=== PATIENT | female | born 1960 | race Caucasian/White ===

== ENCOUNTER 2023-06-15 20:58 | Observation (INO) | payer SELFPAY ==
[2023-06-15] VITALS (8 sets, daily range): BP systolic 111–147; BP diastolic 65–100
[2023-06-15 15:38] LABS: % Basophils 0.3 % (0-2); % Eosinophils 0.1 % (0-6); % Immature Granulocytes 0.3 % (0-0.5); % Lymphocytes 10.4 % (20.5-51.1); % Monocytes 2.8 % (1.7-9.3); % Neutrophils 86.1 % (42.2-75.2); Absolute Monocytes 0.3 10^3/uL (0.1-0.6); Absolute Neutrophils 8.2 10^3/uL (1.4-6.5); Hematocrit 41.8 % (37.0-47.0); Hemoglobin 14.6 g/dL (12.0-16.0); Mean Corp Hgb Conc. 34.9 g/dL (33.0-37.0); Mean Corpuscular Hgb 30.4 pg (27.0-31.0); Mean Corpuscular Volume 87.1 fL (81.0-99.0); Mean Platelet Volume 9.5 fL (7.4-10.4); Nucleated Red Blood Cells % 0 %; Platelet Count 261 10^3/uL (130-400); Red Cell Dist. Width 11.8 % (11.5-14.5); White Blood Cell Count 9.5 10^3/uL (4.8-10.8)
--- NOTE | 2023-06-15 15:45 | ED.GENMED ---
History of Present Illness
<Ning Campo PA-C - Last Filed: 06/15/23 21:51>
General
Chief Complaint: Abdominal Symptoms
Source: patient
Exam Limitations: none
Time Seen by Provider: 06/15/23 15:18
Nursing documentation reviewed up to this point in time: agreed with
Travel History
Have you had any contact with someone who has COVID-19?: No
Do you have any symptoms of coronavirus? Fever > 100 degrees, chills, cough, shortness of breath, sore throat, loss of taste or smell, muscle aches, or headache?: No
History of Present Illness
History of Present Illness:
Patient is a 62-year-old female presenting for evaluation of acute onset lower abdominal pain and vomiting. 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
vomiting. She proceeded to vomit multiple times. She was then seen in urgent care they referred her to the emergency department for further evaluation. She was brought in by EMS and given 50 mcg fentanyl en route.
Patient believes that the symptoms are similar to prior diverticulitis flare in the past. She denies any fever, chills, diarrhea, urinary symptoms. She denies any back pain, chest pain, shortness of breath. Patient denies any hematemesis.
Patient does have a history of a known ascending thoracic aortic aneurysm which has been monitored. No history of abdominal surgeries
Past History
<Ning Campo PA-C - Last Filed: 06/15/23 21:51>
Past History
ED Past Medical History: HTN, Psychiatric (Bipolar disorder) and Other (Cervical and thoracic disc disease, chronic chest pain, T3 herniation/narcotic dependent, Gastroenteritis, Intractable Nausea/vomiting, ascending aortic aneurysm (3.4cm))
ED Past Surgical History: Gynecological (Ectopic , D&C) and Orthopedic (Epidural injection, Left hip fracture)
Social History
Tobacco: Former smoker
Alcohol: Occasional
Personal: (Divorce, and remarried. Intermittent custody siu and stress from her ex-. )
Living: with family
Employment: Not employed
Family History
Family History: Other (Noncontributory)
Phy Exam
<Ning Campo PA-C - Last Filed: 06/15/23 21:51>
Physical Exam
Physical Exam:
General: In moderate distress, nontoxic appearing, vomiting on initial assessment
Vitals: Bradycardic, otherwise vital signs stable, afebrile
HEENT: Atraumatic, normocephalic; pupils equal round react light bilaterally, protecting airway
Neck: appears supple, no meningeal signs
CV: Bradycardic, heart sounds normal, no evidence of cyanosis
Resp: No evidence of respiratory stress, lungs clear bilaterally
Abd: Soft, moderate tenderness in lower abdomen most significant in right lower quadrant, no rebound tenderness or guarding, non-distended; no CVA tenderness
Extremities: No deformities, no evidence of cyanosis or edema
Neuro: alert and oriented x3; grossly intact
Psych: Normal affect
Skin: Intact, no rashes or jaundice
Course
<Nnig Campo PA-C - Last Filed: 06/15/23 21:51>
Orders/Labs/Results
Orders:
Orders
06/15/23 15:34
Complete Blood Count/With Diff Urgent
Comprehensive Metabolic Panel Urgent
Lipase Urgent
TSH Reflex To Free T4 Urgent
Comment: ADD ON
06/15/23 15:45
0.9% Sodium Chloride 1000 ml [Nss] 1,000 ml IV BOLUS
HYDROmorphone [Dilaudid] 0.5 mg IV NOW STA
Ondansetron Injectable [Zofran] 4 mg IV NOW STA
06/15/23 15:58
CT Chest/abd/pelvis Angio W/wo Urgent
Comment:
Reason For Exam: Abdominal pain. History of thoracic aneurysm
06/15/23 17:58
HYDROmorphone [Dilaudid] 0.5 mg IV NOW STA
Ondansetron Injectable [Zofran] 4 mg IV NOW STA
06/15/23 19:53
Electrocardiogram (*1) Stat
Reason for Study: Other
Other Reason for Exam: chest pain
EKG- Treatment ONCE
06/15/23 20:15
Troponin I Urgent
06/15/23 20:32
Mag Hydrox/Al Hydrox/Simeth [Maalox] 30 ml Phenobarb/Hyoscy/Atropine/Scop [] 10 ml Viscous Lidocaine 2% [Xylocaine Viscous Cup] 10 ml PO NOW
Pantoprazole [Protonix IV] 40 mg IV NOW STA
06/15/23 20:35
0.9% Sodium Chloride [Nss (Preservative Free)] 10 ml IV NOW STA
06/15/23 20:39
Admit/Transfer Patient As Directed
Co-Sign Provider:
Level of Care: Observation services
Assign to:: Telemetry
Physician / Group: hector montes de oca
Diagnosis: abd pain 2/2 stress induced gastritis
Reason for Telemetry: Arrhythmia
Date to Stop Telemetry: 06/18/23
Time to Stop Telemetry: 11:00
Reason for Hospitalization: abd pain 2/2 stress induced gastritis
Code Status As Directed
Resuscitation Status: Full Code
06/15/23 20:42
Clonazepam [Klonopin] 1 mg PO NOW STA
06/15/23 20:48
Add On- LAB Urgent
Tests Added?: tsh with free t4 reflex
06/15/23 22:00
Trazodone [Desyrel] 100 mg PO HS
06/16/23 08:00
Pantoprazole [Protonix IV] 40 mg IV DAILY
06/18/23 11:00
DC Protocol for Telemetry ONCE
Abnormal Lab Results
06/15/23
15:34
Absolute Neuts (auto) 8.2 H 10^3/uL
(1.4-6.5)
Absolute Lymphs (auto) 1.0 L 10^3/uL
(1.2-3.4)
Neutrophils % 86.1 H %
(42.2-75.2)
Lymphocytes % 10.4 L %
(20.5-51.1)
Glucose 111 H mg/dl
(70-99)
06/15/23 15:34
06/15/23 15:34
Vital Signs
Initial and Last Documented VS:
Initial Vital Signs
Temp Pulse Resp Pulse Ox
98.9 F 47 20 100
06/15/23 15:04 06/15/23 15:04 06/15/23 15:04 06/15/23 15:04
Last Documented Vital Signs
Temp Pulse Resp BP Pulse Ox
98.9 F 44 18 134/79 100
06/15/23 15:04 06/15/23 19:11 06/15/23 19:11 06/15/23 19:11 06/15/23 19:11
<Frederic Dorado MD - Last Filed: 06/15/23 20:13>
Orders/Labs/Results
Orders:
Orders
06/15/23 15:34
Complete Blood Count/With Diff Urgent
Comprehensive Metabolic Panel Urgent
Lipase Urgent
TSH Reflex To Free T4 Urgent
Comment: ADD ON
06/15/23 15:45
0.9% Sodium Chloride 1000 ml [Nss] 1,000 ml IV BOLUS
HYDROmorphone [Dilaudid] 0.5 mg IV NOW STA
Ondansetron Injectable [Zofran] 4 mg IV NOW STA
06/15/23 15:58
CT Chest/abd/pelvis Angio W/wo Urgent
Comment:
Reason For Exam: Abdominal pain. History of thoracic aneurysm
06/15/23 17:58
HYDROmorphone [Dilaudid] 0.5 mg IV NOW STA
Ondansetron Injectable [Zofran] 4 mg IV NOW STA
06/15/23 19:53
Electrocardiogram (*1) Stat
Reason for Study: Other
Other Reason for Exam: chest pain
EKG- Treatment ONCE
06/15/23 20:15
Troponin I Urgent
06/15/23 20:32
Mag Hydrox/Al Hydrox/Simeth [Maalox] 30 ml Phenobarb/Hyoscy/Atropine/Scop [] 10 ml Viscous Lidocaine 2% [Xylocaine Viscous Cup] 10 ml PO NOW
Pantoprazole [Protonix IV] 40 mg IV NOW STA
06/15/23 20:35
0.9% Sodium Chloride [Nss (Preservative Free)] 10 ml IV NOW STA
06/15/23 20:39
Admit/Transfer Patient As Directed
Co-Sign Provider:
Level of Care: Observation services
Assign to:: Telemetry
Physician / Group: hector montes de oca
Diagnosis: abd pain 2/2 stress induced gastritis
Reason for Telemetry: Arrhythmia
Date to Stop Telemetry: 06/18/23
Time to Stop Telemetry: 11:00
Reason for Hospitalization: abd pain 2/2 stress induced gastritis
Code Status As Directed
Resuscitation Status: Full Code
06/15/23 20:42
Clonazepam [Klonopin] 1 mg PO NOW STA
06/15/23 20:48
Add On- LAB Urgent
Tests Added?: tsh with free t4 reflex
06/15/23 22:00
Trazodone [Desyrel] 100 mg PO HS
06/16/23 08:00
Pantoprazole [Protonix IV] 40 mg IV DAILY
06/18/23 11:00
DC Protocol for Telemetry ONCE
Abnormal Lab Results
06/15/23
15:34
Absolute Neuts (auto) 8.2 H 10^3/uL
(1.4-6.5)
Absolute Lymphs (auto) 1.0 L 10^3/uL
(1.2-3.4)
Neutrophils % 86.1 H %
(42.2-75.2)
Lymphocytes % 10.4 L %
(20.5-51.1)
Glucose 111 H mg/dl
(70-99)
06/15/23 15:34
06/15/23 15:34
Vital Signs
Initial and Last Documented VS:
Initial Vital Signs
Temp Pulse Resp Pulse Ox
98.9 F 47 20 100
06/15/23 15:04 06/15/23 15:04 06/15/23 15:04 06/15/23 15:04
Last Documented Vital Signs
Temp Pulse Resp BP Pulse Ox
98.9 F 44 18 134/79 100
06/15/23 15:04 06/15/23 19:11 06/15/23 19:11 06/15/23 19:11 06/15/23 19:11
<Ning Campo PA-C - Last Filed: 06/15/23 21:51>
MDM/Problems Addressed
Differential Diagnosis Includes:
Appendicitis, diverticulitis, kidney stone, pancreatitis, close colitis, constipation, AAA
MDM/Problems Addressed:
Patient is a 8-year-old female history as documented presenting for evaluation of acute onset lower abdominal pain associated vomiting earlier today. Seen in urgent care and sent via EMS for further evaluation. No fever, chills, urinary symptoms,
back pain, chest pain, shortness of breath. Patient is somewhat bradycardic on arrival, otherwise vital signs stable. Physical exam as documented above. She is actively vomiting, does appear uncomfortable. She is moderate tenderness in lower
abdomen worse in right lower quadrant. Will give Zofran, Dilaudid, fluids. Basic labs obtained in triage unremarkable. Given known history of thoracic aortic aneurysm�although doubt this is the cause of abdominal pain will check CTA chest,
abdomen, pelvis. Will reassess.
Patient reports initial improvement following pain management and Zofran. After approximately 2 hours she is in more significant discomfort. Will give another for Zofran, 0.5 Dilaudid. CTA pending. At this point case was signed out to attending.
Chronic conditions affecting care:
Thoracic aortic aneurysm, diverticulitis
<Ning Campo PA-C - Last Filed: 06/15/23 21:51>
*Radiology
Radiology exam reviewed: preliminary read by ED provider and radiology read reviewed
*Pulse Oximetry
Patient hypoxic: no
*Energy Efficiency Specialist Interpretation
Rate: bradycardiac
Interpretation: abnormal
Heart Rate: 42
Rhythm: sinus
*Critical Care Note
Total Time (30-74mins, 75-104mins- exclusive of procedures): Not Applicable
Data Reviewed
Review of Other/Old Records Reveals: Labs and Records
Source: previous hospital records
<Frederic Dorado MD - Last Filed: 06/15/23 20:13>
*EKG
Interpreted by ED Provider?: Yes
Interpretation: abnormal
Comparison EKG: changes noted
Heart Rate: 43
Rate: bradycardiac
Rhythm: other (Sinus and junctional)
[place]: normal axis
Interval: normal interval
QRS Pattern: normal QRS
Ischemia: non-specific ST changes
<Frederic Dorado MD - Last Filed: 06/15/23 20:13>
Update Note
Update Note:
Patient remains tender in the lower abdomen. Unknown etiology. Stable aneurysm. Bradycardia but no bradycardia. Warrants admission pain and nausea management and observation
ED Attending Note
<Ning Campo PA-C - Last Filed: 06/15/23 21:51>
-
Portions of this chart may have been created with voice recognition software.� Occasional wrong word or��sound alike� substitutions may have occurred due to the inherent limitations of voice recognition software.
<Frederic Dorado MD - Last Filed: 06/15/23 20:13>
ED Attending Note
Patient seen and examined by attending physician: Yes
I performed the substantive portion of visit, reviewed & personally made and approve the management plan that is documented in note by myself or MICHAEL.: Yes
ED Attending Note:
62-year-old female complaining of lower abdominal pain. Has had 2 days of nausea. Lower abdominal pain started relatively suddenly about 1 PM today. Diffuse across her lower abdomen. No radiation to the back. No fever. No chest pain or
shortness of breath. No upper back pain.
Patient does have a known thoracic aneurysm that is being watched.
On exam patient is nontoxic but appears uncomfortable at times. Occasionally has a dry heave. Lungs are clear and equal. Heart bradycardic and regular no murmur. Abdomen soft mild diffuse lower abdominal tenderness. No rebound or guarding no
mass or hernia. No pulsatile masses.
Impression relatively sudden onset of lower abdominal pain. Possible appendicitis, diverticulitis, colitis. Doubt related to her aneurysm although CT scan for this is warranted. Workup in progress
Discharge Plan
Departure
Patient Disposition: Admit
Date of Disposition: 06/15/23
Time of Disposition: 20:12
Presentation/result/management discussed w/ accepting MD/DO: Hospitalist
Discharge Problem:
Intractable abdominal pain/vomiting, Bradycardia
Interventions
Interventions:
*Risk Screen - Suicide Last Done: 06/15/23 15:04
*General Assessment Last Done: 06/15/23 15:04
*Neglect/Abuse Screening Last Done: 06/15/23 15:04
ED- Fall Risk Assessment Last Done: 06/15/23 15:40
*ED COVID-19 Vaccine History Last Done: 06/15/23 15:40
YB-Iqvdff-Pfhxkjhtnu Assessment Last Done: 06/15/23 15:40
[2023-06-15] MEDS: ZOFRAN 4 MG IV ×2 (15:51→18:11)
[2023-06-15] MEDS: DILAUDID 0.5 MG IV ×2 (15:51→18:07)
[2023-06-15] MEDS: NSS 1000 IV (15:55)
[2023-06-15 16:07] LABS: ALT (SGPT) 25 U/L (0-35); AST (SGOT) 32 U/L (14-36); Albumin 4.9 g/dl (3.5-5.0); Alkaline Phosphatase 102 U/L (38-126); Blood Urea Nitrogen 10 mg/dl (7-17); Calcium 9.9 mg/dl (8.4-10.2); Carbon Dioxide 24 mmol/L (22-30); Chloride 105 mmol/L (98-107); Glucose 111 mg/dl (70-99); Lipase 107 U/L (23-300); Potassium 3.9 mmol/L (3.5-5.1); Sodium 138 mmol/L (135-145); Total Bilirubin 0.8 mg/dl (0.2-1.3); Total Protein 7.7 g/dl (6.3-8.2); eGFR > 60.00
--- NOTE | 2023-06-15 20:19 | HPS.HSE ---
Addendum entered and electronically signed by Rodolfo Dean MD 06/15/23 20:53:
I saw and examined the patient.
The FIRE RANGER or PA's note was reviewed and I agree with the note.
Comment: SEE UPDATE NOTE
Original Note:
Family Physician
-
Family Physician: James Camarillo
Chief Complaint
-
Abdominal pain with nausea and vomiting
History of Present Illness
62-year-old female complaining of epigastric pain through to back with vomiting that started at 1 PM while at work. She reports she vomited multiple times was seen at urgent care and referred to the ER for evaluation. She was brought by EMS to the
ER and given 50 mcg of fentanyl en route. She reports to me that she has been under tremendous amounts of stress over the past few weeks due to finances. She is been having bouts of nausea with reflux has been taking Tums OTC with only minimal
relief. She has been off of her trazodone, Zoloft, Klonopin for the past 4 months due to lack of insurance. 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 She denies fever, chills, chest pain,
palpitations, shortness breath, cough, urinary symptoms. She is past medical history of diverticulitis which she states this feels like. She has a known history of a sending thoracic aortic aneurysm which is being monitored. She has past medical
history of hypertension, bipolar disorder, cervical and thoracic disc disease, spinal stenosis, T3 herniation, former smoker, COVID-19 infection 07/02/2020.
Medical History
Past Medical History
Past Medical History: Reports Other
Additional Past Medical History:
Stress-induced gastritis
hypertension
bipolar disorder
cervical and thoracic disc disease
spinal stenosis,
T3 herniation
Diverticulitis
former smoker
COVID-19 infection 07/02/2020
Past Surgical History: Reports Other
Additional Past Surgical History:
Ectopic with D&C
Epidural injection
Cervical fusion C6-C7
Left hip fracture repair
Social History
Tobacco: Non-smoker
Alcohol: None
Drug: None
Personal:
Living: With Family
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
Family History
Family History: Other (Mother [place] age 70s Father [place] age 63)
Allergies / Home Medications
Allergies reflects when Allergies were last updated in [facility].
Home Medications with original date entered in [facility]
Allergy/Medication List:
Allergies
Allergy/AdvReac Type Severity Reaction Status Date / Time
metoclopramide [From Reglan] Allergy Pt states Verified 06/15/23 15:09
Facial
Paralysis
Home Medications
atenolol 25 mg tablet 25 mg PO HS 10/28/19
Review of Systems
-
History Source: Patient
A 12 point ROS was completed and negative except as noted: Yes
Constitutional: Denies Fever or Fatigue
EENT: Denies Sore Throat or Runny Nose
Respiratory: Denies Cough or Trouble Breathing
Cardiac: Denies Chest Pain, Diaphoresis, Palpitations or Syncope
Abdomen/GI: Reports Abdominal Pain (Epigastric thru to back), Nausea, Vomiting and Other (Dyspepsia)
: Denies Dysuria, Frequency, Flank Pain, Incontinence or Difficulty Voiding
Musculoskeletal: Denies Joint Pain, Joint Swelling or Edema
Skin: Denies Itching or Rash
Neurological: Denies Dizzy, Headache or Weakness
Endocrine: Reports No Symptoms
Hematologic/Lymphatic: Reports No Symptoms
Psych: Reports Anxiety
Physical Exam
Vital Signs
Vital Signs
Temp Pulse Resp BP Pulse Ox
98.9 F 44 18 134/79 100
06/15/23 15:04 06/15/23 19:11 06/15/23 19:11 06/15/23 19:11 06/15/23 19:11
Physical Exam
General: Conversant and Pain; No Fever or Chills
HEENT: NormoCephalic, Anicteric, Moist mucous membranes, PERRLA, [place] Conjunctivae and No Ptosis
Respiratory: Clear; No Wheezes, Rales or Rhonchi
Cardiac: S1/S2 and Bradycardia (Junctional bradycardia heart rate 43 bpm); No Murmur, Rub, Gallop or Peripheral Edema
Breast: Deferred by me
GI: Soft, Non Distended, Normal Bowel Sounds, Tender (Epigastric) and No Hepatosplenomegaly
Rectal: Deferred by Provider
Genito-urinary: Deferred by me
Musculoskeletal: No Clubbing, No Cyanosis and No Edema
Skin: Warm and Dry; No Rash
Neuro: AO x 3, No Motor Deficits and No Sensory Deficits; No Slurred Speech, Facial Droop or Tremors
Psych: Anxious
Laboratory Results
-
06/15/23 15:34
06/15/23 15:34
Laboratory Results
Total Bilirubin 0.8 mg/dl (0.2-1.3) 06/15/23 15:34
AST 32 U/L (14-36) 06/15/23 15:34
ALT 25 U/L (0-35) 06/15/23 15:34
Alkaline Phosphatase 102 U/L (38-126) 06/15/23 15:34
Lipase 107 U/L (23-300) 06/15/23 15:34
Impression/Plan
-
Impression/plan:
Observation telemetry
#Abdominal pain likely stress-induced gastritis
#History of stress-induced gastritis
#Hx diverticulitis
Reports under major financial stress has been having acid reflux with nausea and taking Tums
-IV NSS
-GI cocktail
-IV Protonix 40 mg now daily
-Consult psych-stopped trazodone ,Zoloft,Klonopin for medical due to lack of insurance now has insurance but no PCP
-Will give trazodone 100 mg at at bedtime, Klonopin 1 mg now
-Check TSH and free T4 reflex
CT chest abdomen pelvis angio with without:
1. Mild dilation of the ascending aorta 4.2 cm at the level of the right main pulmonary artery
2. Examination is negative for thoracic and abdominal aortic dissection
3. Mild hepatomegaly
#Bradycardia
HR 43, atenolol 25 mg at bedtime with hold parameters( consider alternative if persistent bradycardia)
EKG: Junctional bradycardia 43 bpm, QTc 425 MS
#Known thoracic abdominal aortic aneurysm
4.[address]
#HTN�benign
-Continue atenolol 25 mg at bedtime with hold parameters
#Bipolar disorder
-Stopped trazodone, Zoloft 100 mg, Klonopin 1mg prn 4 months ago due to lack of insurance now has returned insurance but is looking for primary care provider
Other PMH:
Cervical and thoracic disc disease-Cervical fusion C6-C7
Spinal stenosis
T3 herniation
former smoker
COVID-19 infection 07/02/2020
DVT prophylaxis
SCDs
Full code
[2023-06-15 20:48] LABS: Troponin I < 0.012 ng/ml
--- NOTE | 2023-06-15 20:53 | W.PN.UPDATE ---
Addendum entered and electronically signed by Rodolfo Dean MD 06/15/23 21:09:
This note serves as an addendum to the H&P by MICHAEL tire service supervisor Tonya PETER on 06/15/23.
Original Note:
Update Note
Progress Note Update
HPI
62F HX bipolar disorder, essential HTN on atenolol , chr bradycardia former smoker pw lower abdominal pain with vomiting
Reports multiple emesis , nausea, denied hematemesis and melena. No dirrhea
She was seen at urgent care and referred to the ER for evaluation and sent in to ER with EMS.
Per EMS: IV 50 mcg of fentanyl en route.
Report she loss her health for last few months and so does prescription Trazodone , Zoloft and Klonopin.
Under a lot of social stressors
Recently employed at [employer] but pending new PCP
PHX; as above
Reviewed VS: noted chr bradycardia on atenolol
PE
Gen: anxious but conversant , not toxic , gagging and spitting
HEENT: anicteric , no pallor
Neck: supple
Lungs: CTA
Cor: SB, S1 S2 , no mm
Abdomen: soft , non tender, non guarding , nl BS
BILINGUAL CALL CENTER REPRESENTATIVE: AAO3, nl speech, nl dfacila expression, symmetric movement and strength in all exts
MS: no edema
Psych: anxious, asking meds to to calm her nerves
Data
nl CBC
nl CMP
CT Chest/abd/pelvis Angio W/wo
- Examination is negative for thoracic and abdominal aortic dissection.
- Mild dilation of the ascending aorta with short axis diameter 4.2 cm at the level the right main pulmonary artery.
- Not mentioned above, the pulmonary arteries are also well opacified and there is no evidence for pulmonary embolism.
- The left main coronary artery and the proximal LAD and circumflex coronary arteries are well-visualized and are patent, with a ramus branch also present. The right coronary artery is not well-visualized because of motion.
- The lungs appear clear.
- Mild hepatomegaly. No focal hepatic lesion.
- Bony degenerative changes as described.
EKG
JUNCTIONAL BRADYCARDIA
SEPTAL INFARCT , AGE UNDETERMINED
ABNORMAL ECG
WHEN COMPARED WITH ECG OF 30-DEC-2020 20:11,
JUNCTIONAL RHYTHM HAS REPLACED SINUS RHYTHM
SEPTAL INFARCT IS NOW PRESENT
ST NO LONGER DEPRESSED IN ANTERIOR LEADS
NONSPECIFIC T WAVE ABNORMALITY NO LONGER EVIDENT IN INFERIOR LEADS
NONSPECIFIC T WAVE ABNORMALITY HAS REPLACED INVERTED T WAVES IN ANTERIOR LEADS
Last hospitalist admission: 05/30 - 2019
DX: Left hip fracture.
Noted Psych consultation on that admission
ASSESSMENT & PLAN
Pending Rx reconciliation
Intractable abdominal pain with unremarkable CT Chest/abd/pelvis Angio W/wo
Acid reflux taking tums frequently - temprary help
Epigastric pain - nausea and Vomiting for weeks
- stable VSS
- PO PPO daily
- GI cocktail PRN
- IV NS
Chr bradycardia on atenolol for HTN
- check TSH
- TLM
Acute major life stressors : major financial , no PCP, no health insurance
HX Bipolar disorder / major depressive disorder
- No Trazodone, Zoloft and Klonopin for last 4 months
- Just recently got new [employer] insurance
- Psych consult
DVT Px: SCD
Full code
Obs TLM
[2023-06-15] MEDS: PROTONIX IV 40 MG IV (21:20)
[2023-06-15] MEDS: NSS (PRESERVATIVE FREE) 10 ML IV (21:20)
[2023-06-15] MEDS: KLONOPIN 1 MG PO (21:20)
[2023-06-15] MEDS: MAALOX 50 PO (21:21)
[2023-06-15 21:49] LABS: TSH Reflex To Free T4 0.29 uIU/ml (0.47-4.68)
[2023-06-15 22:19] LABS: Free T4 1.31 ng/dl (0.78-2.19)
[2023-06-16] VITALS (13 sets, daily range): BP systolic 108–147; BP diastolic 62–116; BMI 22.0
[2023-06-16] MEDS: NSS 1000 IV ×3 (00:11→20:52)
[2023-06-16] MEDS: ZOFRAN 4 MG IV ×3 (03:32→16:27)
[2023-06-16 04:46] LABS: % Basophils 0.1 % (0-2); % Immature Granulocytes 0.4 % (0-0.5); % Lymphocytes 12.2 % (20.5-51.1); % Monocytes 3.7 % (1.7-9.3); % Neutrophils 83.6 % (42.2-75.2); Absolute Lymphocytes 1.2 10^3/uL (1.2-3.4); Absolute Monocytes 0.4 10^3/uL (0.1-0.6); Hematocrit 38.1 % (37.0-47.0); Hemoglobin 13.1 g/dL (12.0-16.0); Mean Corp Hgb Conc. 34.4 g/dL (33.0-37.0); Mean Corpuscular Hgb 30.8 pg (27.0-31.0); Mean Corpuscular Volume 89.6 fL (81.0-99.0); Mean Platelet Volume 9.6 fL (7.4-10.4); Nucleated Red Blood Cells % 0 %; Platelet Count 226 10^3/uL (130-400); Red Blood Cell Count 4.25 10^6/uL (4.20-5.40); Red Cell Dist. Width 11.9 % (11.5-14.5); White Blood Cell Count 9.6 10^3/uL (4.8-10.8)
[2023-06-16 05:22] LABS: Blood Urea Nitrogen 9 mg/dl (7-17); Calcium 9.2 mg/dl (8.4-10.2); Carbon Dioxide 22 mmol/L (22-30); Chloride 106 mmol/L (98-107); Glucose 121 mg/dl (70-99); Potassium 3.8 mmol/L (3.5-5.1); Sodium 136 mmol/L (135-145); eGFR > 60.00
[2023-06-16] MEDS: PHENERGAN 25 MG RECTAL (05:24)
[2023-06-16] MEDS: DILAUDID 0.5 MG IV ×5 (06:15→22:34)
--- NOTE | 2023-06-16 08:04 | CON.GI ---
Addendum entered and electronically signed by Susan Shafer MD 06/16/23 18:08:
I saw and examined the patient.
The BEET END SUPERVISOR or PA's note was reviewed and I agree with the note.
Comment: 62-year-old female past medical history as below as well as multiple psych issues here with abdominal pain and vomiting. Differential diagnosis includes but not limited to functional dyspepsia especially given her multiple stressors,
gastroparesis, less likely peptic ulcer disease. CTA chest, abdomen, pelvis unremarkable. Labs overall unremarkable. Plan for endoscopy tomorrow. Risk, alternatives, benefits explained to patient including but not limited to bleeding, infection,
perforation, patient is agreeable. Discussed with cardiology appreciate their input patient with sinus torrey not junctional rhythm ok to proceed with EGD. Clears today, n.p.o. after midnight. If EGD is unremarkable, plan for US. If US and EGD
negative, may benefit from G[facility] outpatient as received narcotics in hospital.
Original Note:
Consultation
-
Date/Time Consultation Requested: 06/15/23 22:25
Date/Time Consultation Performed: 06/16/23 @ 09:00
Requesting Provider: SHANNON Marie
Performing Provider: SHANNON Moore; Dr. Roxy Shafer
Reason for Consultation: intractable vomiting
Medical History
Chief Complaint / HPI
Chief Complaint: abdominal pain, vomiting
History of Present Illness:
The patient is a 62-year-old female with a past medical history significant for hypertension, bipolar disorder, anxiety, depression, migraines, gastritis, spinal stenosis, history of diverticulitis, thoracic aortic aneurysm, who presented to the
emergency room with complaints of epigastric pain with vomiting. We are being asked to evaluate for the presenting symptoms. The patient reports that she developed mild abdominal discomfort several days ago with associated mild nausea. Her pain
had gotten worse, and notes yesterday around 1 pm at work she had severe pain that induced significant vomiting. She notes she has had similar pain in the past with diverticulitis about 6 years ago. She denies any signs of bleeding such as melena,
hematochezia, or hematemesis. She notes that she does run on the constipated side with her last bowel movement 2 days ago but denies any overt diarrhea. She admits that she has had significant stressors in her life recently and had just gotten
health insurance back. She had been off of a lot of her medications including her medications for her bipolar disorder and anxiety. She has lost about 5 pounds over the past few days due to decreased p.o. intake. Anything she tries to eat she
vomits up. She does admit to occasional heartburn and will take Tums as needed. She has been using Advil for pain at home with 600 mg a day which she has been using more frequently but no prolonged use. She otherwise denies any fevers, chills,
chest pain, shortness of breath, dysphagia, or odynophagia. She denies any use of blood thinners. She denies any prior EGD. She notes she had a colonoscopy about 10 years ago which she had some polyps removed. She denies family history of GI
cancers or disorders. She denies history of diabetes. Routine labs on admission essentially unrevealing aside from an elevated glucose of 111. Noted to have a low TSH of 0.29 with a normal free T4 at 1.31. She underwent a CTA of the chest,
abdomen, and pelvis which showed no acute findings. She received a GI cocktail in the emergency room and started on IV Dilaudid for pain as needed. She was placed on a clear liquid diet, IV fluids, IV PPI, admitted for further evaluation by GI and
psychiatry.
Past Medical History
Past Medical History: HTN, Psychiatric (anxiety, depression, bipolar disorder) and Other (dilated thoracic aortic aneurysm, migraines, gastritis, spinal stenosis, hx of diverticulitis, bradycardia)
Past Surgical History: Gynecological (D&C, ectopic ) and Orthopedic (cervical fusion, left hip fracture with repair)
Social History
Tobacco: Non-Smoker
Alcohol: Occasional
Drug: None
Employment: Employed
Family History
Family History: Reviewed & Not Pertinent
Allergies / Home Medications
Allergy/AdvReac Type Severity Reaction Status Date / Time
metoclopramide [From Reglan] Allergy Pt states Verified 06/15/23 15:09
Facial
Paralysis
�Medication �Instructions �Recorded
atenolol 25 mg tablet 25 mg PO HS 10/28/19
Review of Systems
-
History Source: Patient
Constitutional: Reports No Symptoms
EENT: Reports No Symptoms
Respiratory: Reports No Symptoms
Cardiac: Reports No Symptoms
Abdomen/GI: Reports Abdominal Pain, Nausea, Vomiting and Constipated
: Reports No Symptoms
Musculoskeletal: Reports No Symptoms
Skin: Reports No Symptoms
Vital Signs
Temp Pulse Resp BP Pulse Ox
99.2 F 42 16 147/78 99
06/16/23 07:00 06/16/23 07:00 06/16/23 07:00 06/16/23 07:00 06/16/23 07:00
Physical Exam
Exam
General: Well Developed and Other (The patient is rocking in pain, appears uncomfortable, and tearful)
HEENT: Normocephalic, Anicteric and Atraumatic
Respiratory: Clear
Cardiac: S1/S2 and Regular Rhythm
GI: Soft, Non Distended, Normal Bowel Sounds and Tender (Diffusely tender throughout abdomen)
Musculoskeletal: No Edema
Skin: Warm and Dry
Neuro: Awake, Alert and Oriented
Psych: Calm
Results
WBC 9.6 10^3/uL (4.8-10.8) 06/16/23 04:35
Hgb 13.1 g/dL (12.0-16.0) 06/16/23 04:35
Hct 38.1 % (37.0-47.0) 06/16/23 04:35
MCV 89.6 fL (81.0-99.0) 06/16/23 04:35
Plt Count 226 10^3/uL (130-400) 06/16/23 04:35
Absolute Neuts (auto) 8.0 10^3/uL (1.4-6.5) H 06/16/23 04:35
Sodium 136 mmol/L (135-145) 06/16/23 04:35
Potassium 3.8 mmol/L (3.5-5.1) 06/16/23 04:35
Chloride 106 mmol/L (98-107) 06/16/23 04:35
Carbon Dioxide 22 mmol/L (22-30) 06/16/23 04:35
BUN 9 mg/dl (7-17) 06/16/23 04:35
Creatinine 0.6 mg/dL (0.6-1.0) 06/16/23 04:35
Calcium 9.2 mg/dl (8.4-10.2) 06/16/23 04:35
Total Bilirubin 0.8 mg/dl (0.2-1.3) 06/15/23 15:34
AST 32 U/L (14-36) 06/15/23 15:34
ALT 25 U/L (0-35) 06/15/23 15:34
Alkaline Phosphatase 102 U/L (38-126) 06/15/23 15:34
Lipase 107 U/L (23-300) 06/15/23 15:34
Diagnostic Image Results:
06/15/2023 CTA C/A/P: 'Examination is negative for thoracic and abdominal aortic dissection. Mild dilation of the ascending aorta with short axis diameter 4.2 cm at the level the right main pulmonary artery. Not mentioned above, the pulmonary arteries
are also well opacified and there is no evidence for pulmonary embolism. The left main coronary artery and the proximal LAD and circumflex coronary arteries are well-visualized and are patent, with a ramus branch also present. The right coronary
artery is not well-visualized because of motion. The lungs appear clear. Mild hepatomegaly. No focal hepatic lesion.'
Prior GI Procedures:
EGD: none
Colonoscopy: 10 years ago with polyps removed per pt (report not available to me)
Assessment / Plan
-
The patient is a 62-year-old female with a past medical history significant for hypertension, bipolar disorder, anxiety, depression, migraines, gastritis, spinal stenosis, history of diverticulitis, thoracic aortic aneurysm, who presented to the
emergency room with complaints of epigastric pain with vomiting. We are being asked to evaluate for the presenting symptoms. ER workup essentially unrevealing with no acute findings on CTA of the chest, abdomen, and pelvis. No significant lab
abnormalities aside from a mildly elevated glucose and low TSH with normal free T4. Noted with junctional bradycardia on EKG on atenolol for hypertension. She denies prior EGD. Noted prior ER visit for gastritis in 2020 and was discharged on
Protonix and Carafate at that time. She currently reports she continues with nausea and vomiting, She denies use of marijuana, IV drug, or narcotics.
Problem list:
-epigastric pain
-nausea, vomiting
-junctional bradycardia on EKG
-hx gastritis
-hx diverticulitis
-hyperglycemia
Other pertinent medical hx:
-HTN
-bipolar disorder
-anxiety, depression
-migraines
-spinal stenosis
Recommendations:
-Etiology of current symptoms possibly secondary to gastroenteritis versus NSAID induced gastritis versus peptic ulcer disease versus gastroparesis versus other.
--- CTA with no findings to explain her symptoms. She has been using Advil somewhat more frequently but not for an extended period of time. Epigastric pain would not typically be suggestive of diverticulitis
-Will send hemoglobin A1c to evaluate for possible gastroparesis with elevated glucose levels. She denies treatment for diabetes.
-Will increase PPI to twice daily IV
-Add Carafate twice daily, with history of constipation will be cautious with this
-Continue Zofran for nausea as needed (noted with allergy to Reglan with tardive dyskinesia)
-Would limit use of narcotics as able
-Clear liquid diet until nausea and vomiting improved
-If symptoms are overall not improving to consider EGD for further evaluation, but would recommend cardiology evaluation given EKG showing a junctional rhythm
-Psychiatry consult pending, she does admit to a significant amount of stress and is tearful upon conversation of this
-Further plan as above pending clinical course
Data Reviewed
-
CT Scan: Report Reviewed by me
Old Records: Reviewed
-
-
Thank you for consultation and allowing me to participate in the patient's care. Please call the sap security consultant GI physician during the after hours with any questions or concerns.
[2023-06-16 09:26] LABS: Glycohemoglobin (HgbA1c) 5.5 % (4.0-5.6)
[2023-06-16] MEDS: CARAFATE SUSPENSION 1 GM PO ×2 (09:49→20:51)
--- NOTE | 2023-06-16 10:39 | W.PN.HOSP.TC ---
Addendum entered and electronically signed by Stef Sun MD 06/16/23 16:41:
Patient seen and examined
Discussed with resident:
Impression:
Presentation with abdominal pain and nausea without vomiting.
Junctional bradycardia to 40s while on atenolol.
Known abdominal aortic aneurysm.
Essential hypertension
Psych history including PTSD, anxiety, depression/bipolar disorder
Former smoker
Spinal stenosis
Plan:
Abdominal pain.
Exam benign.
CBC/CMP within normal limits.
CTA chest abdomen pelvis with no acute abnormalities.
Empiric PPI.
GI evaluation
Consideration of endoscopic evaluation
Junctional bradycardia.
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
TSH suppressed at 0.29
Echo 12/02 within normal limits
Hold atenolol.
Monitor on telemetry.
Cardiology evaluation
Psychiatric history including bipolar disorder, PTSD.
Urine drug screen on 05/12 reported positive for opiates, amphetamines, methamphetamines, benzodiazepines.
Patient reports not taking illicit substances currently.
Also given the lack of health insurance ran out of prescription including benzodiazepines.
? Withdrawal component
Repeat urine drug screen. Psychiatry consultation.
Original Note:
Today's Communication/Plan
-
see a/p
Assessment / Plan
Assessment / Plan
Assessment
Epigastric abdominal pain likely stress-induced gastritis versus NSAID induced gastritis versus peptic ulcer disease versus gastroparesis
Junctional bradycardia on EKG
Bipolar disorder
Condition prior to admission
Essential hypertension
Thoracic aortic aneurysm without rupture
Depression
Anxiety
History of migraine headache
History of agoraphobia with panic attack
Plan
#Epigastric abdominal pain likely stress-induced gastritis versus NSAID induced gastritis versus peptic ulcer disease versus gastroparesis
#Patient reports continue use of Advil 600 mg a day at home for pain
#Reports recent stressors in her life
#Nausea and vomiting
CT chest/abdomen/pelvis unremarkable
GI input appreciated, if symptoms not improving to consider EGD for further evaluation
PPI IV twice daily
Zofran for nausea
Clear liquid diet until nausea and vomiting improves
Carafate for constipation
#Junctional bradycardia on EKG
Hold Atenolol
Monitor HR while on atenolol
Consult Cardiology. Should patient need EGD procedure, will need cardiac clearance.
TSH 0.29
#Essential hypertension
Hold atenolol due to HR
#Bipolar disorder
#Anxiety/depression
Patient stopped trazodone, Zoloft, Klonopin 4 months ago due to lack of insurance
Reports no primary care provider
Psychiatry consulted
DVT prophylaxis; SCD
CODE STATUS: Full code
Anticipated Discharge: 24 - 48 hours
Objective Data
-
Labs:
Laboratory Results
06/16/23
04:35
WBC 9.6
Hgb 13.1
Hct 38.1
Plt Count 226
Sodium 136
Potassium 3.8
Chloride 106
Carbon Dioxide 22
BUN 9
Creatinine 0.6
Glucose 121 H
Calcium 9.2
Vital Signs:
Vital Signs
Temp Pulse Resp BP Pulse Ox
99.2 F 42 16 147/78 99
06/16/23 07:00 06/16/23 07:00 06/16/23 07:00 06/16/23 07:00 06/16/23 07:00
Review of Systems
-
All other systems: Reviewed and negative (Except as documented)
Physical Exam
-
General: Well Developed and Pain
HEENT: Normocephalic
Respiratory: Clear to Auscultation
Cardiac: Regular Rhythm and S1/S2
GI: Soft, Nondistended, Normal Bowel Sounds and Tender (Generalized abdominal tenderness)
Musculoskeletal: No Edema
Neuro: Awake, Alert, Oriented and AO x 3
Psych: Calm
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
--- NOTE | 2023-06-16 14:59 | CON.CAR ---
Addendum entered and electronically signed by Adina Vargas MD 06/16/23 17:46:
I saw and examined the patient.
The MARKET RESEARCH ASSOCIATE's note was reviewed and I agree with the note.
Comment: 62 y/o female with thoracic aortic aneurysm (4.1 cm)on chronic bb, hypertension, and depression who is here for several days of vomiting and abdominal pain. GI is seeing her and considering endoscopy. We are consulted for bradycardia with
periods of junctional rhythm. She denies any syncope. No SOB.She is currently having intense abdominal pain. Otherwise regular rhythm with an ausculatated rate of 51bpm. On tele she has sinus bradycardia, with pominant u waves, I don't see mobitz.
My review of ecg is sinus torrey with competing junction. No mobitz I seen.
Would continue to hold bb.
Suspect increase vagal tone with abdominal pain and vomiting.
Ok to proceed to EGD as there is no indication for a pacemaker. Can trial atropine vs Dopamine if needed for bradycardia during EGD as this further worsen vagal tone.
Original Note:
Consultation
Consultation Request
Date/Time Consultation Requested: 06/16/23 1316
Date/Time Consultation Performed: 06/16/23 1547
Requesting Provider: Dr. Sun
Performing Provider: Shea ORTEAG for Dr. Vargas
Reason for Consultation: bradycardia
Medical History
-
Chief Complaint: vomiting
History of Present Illness:
62 y/o female with thoracic aortic aneurysm (4.1 cm), hypertension, and depression who is here for several days of vomiting. Then yesterday she also had abdominal pain. GI is seeing her and considering endoscopy. We are consulted for bradycardia
with periods of junctional rhythm. She denies any syncope. No SOB. She feels foggy with pain medicine, but not light-headedness or dizziness before that. TSH low, but free T4 is normal. She has a systolic murmur to auscultation. Atenolol has been
held here.
Past Medical History
Past Medical History: HTN and Other (as above)
Social History
Tobacco: Non-Smoker
Alcohol: Occasional
Family History
Family History: CAD (mom and dad with CAD (dad 63, Mom 70's))
Allergies / Home Medications
Allergy/AdvReac Type Severity Reaction Status Date / Time
metoclopramide [From Reglan] Allergy Pt states Verified 06/15/23 15:09
Facial
Paralysis
�Medication �Instructions �Recorded �Confirmed �Type
atenolol 25 mg tablet 25 mg PO HS Blood Pressure 10/28/19 06/15/23 History
Review of Systems
-
History Source: Patient
All other systems: Negative unless noted
Abdomen/GI: Abdominal Pain, Nausea and Vomiting
Physical Exam
Vital Signs
Temp Pulse Resp BP Pulse Ox
98.8 F 44 16 138/85 98
06/16/23 11:00 06/16/23 11:00 06/16/23 11:00 06/16/23 11:00 06/16/23 11:00
Lab Results
06/16/23 04:35
06/16/23 04:35
Troponin I < 0.012 ng/ml 06/15/23 20:15
Physical Exam
General: Well Developed and No Apparent Distress
HEENT: Normocephalic and Anicteric
Respiratory: Clear and Non Labored Respirations
Cardiac: Regular Rhythm (bradycardia)
Musculoskeletal: No Edema
Skin: Warm and Dry
Neuro: AO x 3
Psych: Calm
Impression / Plan
-
Nausea, vomiting, and abdominal pain:
-on meds, currently pain free. on clears now. GI is following
-possible egd if not improving
Bradycardia:
-HR around 40 BPM. There are periods of junctional rhythm. Will review EKG/tele with Dr. Vargas.
-denies syncope
-remain off atenolol
-TSH low, but free T4 normal
-check echo
-follow telemetry
Systolic murmur:
-check echo
HTN:
-stable overall
-atenolol held for bradycardia
Thoracic aortic aneurysm:
-BB has to be held at this time
-4.2 centimeters on CTA
Hx depression:
-psychiatry is following
Data Reviewed
-
EKG: Tracing Personally Visualized and interpreted (junctional bradycardia)
CT Scan: Report Reviewed by me (CTA chest/abd/pelv: Examination is negative for thoracic and abdominal aortic dissection. Mild dilation of the ascending aorta with short axis diameter 4.2 cm at the level the right main pulmonary artery. no evidence
for pulmonary embolism. The lungs appear clear. Mild hepatomegaly. No focal hepatic)
Medical Tests (Nuc Med, Echo etc): Report Reviewed by me (Echo 12/13/2019 EF 60-65%, mild TR)
Labs: Labs Reviewed by me
--- NOTE | 2023-06-16 16:11 | CM ---
Spoke with pt at bedside
Pt lives with her , brother in a 2 story home
Independent, drives
Denies DME
SNF - denies past snf
Has ride at d/c
- VN in past
PCP -Dr Bayron Camarillo
Pharm - [facility]
Plan - anticipate home no needs
--- NOTE | 2023-06-16 18:08 | W.PN.UPDATE ---
Update Note
Progress Note Update
billing purposes
[2023-06-16] MEDS: TYLENOL 650 MG PO (20:51)
[2023-06-16] MEDS: KLONOPIN 0.5 MG PO (20:51)
[2023-06-16] MEDS: PROTONIX IV 40 MG IV (20:53)
[2023-06-16] MEDS: NSS (PRESERVATIVE FREE) 10 ML IV (20:54)
[2023-06-16 21:56] LABS: Urine Albumin Negative (Neg - Trace); Urine Bilirubin Negative (Negative); Urine Character Clear (Clear); Urine Color Yellow; Urine Glucose Negative (Negative); Urine Ketone Trace (Negative); Urine Leukocyte Negative (Negative); Urine Nitrite Negative (Negative); Urine Occult Blood Trace (Negative); Urine Urobilinogen Negative (Neg - 1+)
[2023-06-16 22:05] LABS: Urine Red Blood Cell 0-2 /HPF (0-2); Urine Squamous Cell 0-2 /LPF (Few); Urine White Cell 0-2 /HPF (0-5)
[2023-06-16 22:06] LABS: Urine Bacteria Few (Negative)
[2023-06-16 22:07] LABS: Amphetamines Negative (Negative); Barbiturates Positive (Negative); Benzodiazepines Negative (Negative); Buprenorphine Negative (Negative); Cocaine Negative (Negative); Marijuana Positive (Negative); Methadone Negative (Negative); Methamphetamines Negative (Negative); Opiates Positive (Negative); Phencyclidine Negative (Negative); Tricyclic Antidepressants Negative (Negative)
[2023-06-16 22:28] LABS: Fentanyl, Urine Negative (Negative)
[2023-06-17] VITALS (11 sets, daily range): BP systolic 14–158; BP diastolic 58–106
--- NOTE | 2023-06-17 00:58 | PTCARENOTE ---
Pt heart rate has been as low in the 30's . SB in the monitor. AAOx3. pt states she feels weak and tired. C/o abd pain. See MAR. Lungs and WNL. Call kearns within reach and will continue with tx plan.
[2023-06-17] MEDS: ZOFRAN 4 MG IV ×2 (01:16→07:43)
[2023-06-17] MEDS: DILAUDID 0.5 MG IV ×6 (02:50→21:25)
[2023-06-17] MEDS: NSS 1000 IV (07:42)
[2023-06-17] MEDS: PROTONIX IV 40 MG IV (07:42)
[2023-06-17] MEDS: NSS (PRESERVATIVE FREE) 10 ML IV (07:42)
[2023-06-17] MEDS: CARAFATE SUSPENSION 1 GM PO ×2 (07:42→19:47)
[2023-06-17] MEDS: COMPAZINE 5 MG IV (09:44)
[2023-06-17] MEDS: ERYTHROCIN 103.599999999999994 MG IV ×2 (10:21→16:58)
--- NOTE | 2023-06-17 11:07 | W.PN.UPDATE ---
Update Note
Progress Note Update
patient seen chart reviewed. patient had egd this am and says they told her 'food is not being processed'. patient is eager to find an answer for her abdominal sx. asked about trazodone. it is being held bc iv erythromycin can with trazodone on
board contribute to qtc prolongation. have added melatonin 5 mg for now. would hold off on psych medications to treat depression and reassess once the gi situation is resolved. she is NOT suicidal and she is cooperating w workup.
--- NOTE | 2023-06-17 11:10 | W.PN.HOSP.TC ---
Today's Communication/Plan
-
Await pathology results
start erythromycin
EKG in AM
Assessment / Plan
Assessment / Plan
Assessment
Epigastric abdominal pain likely stress-induced gastritis versus NSAID induced gastritis versus peptic ulcer disease versus gastroparesis
Junctional bradycardia on EKG
Bipolar disorder
Condition prior to admission
Essential hypertension
Thoracic aortic aneurysm without rupture
Depression
Anxiety
History of migraine headache
History of agoraphobia with panic attack
Plan
#Epigastric abdominal pain likely stress-induced gastritis versus NSAID induced gastritis versus peptic ulcer disease versus gastroparesis
#Patient reports continue use of Advil 600 mg a day at home for pain
#Reports recent stressors in her life
#Nausea and vomiting
CT chest/abdomen/pelvis unremarkable
GI input appreciated, if symptoms not improving to consider EGD for further evaluation
PPI IV twice daily
Zofran for nausea
Clear liquid diet until nausea and vomiting improves
Endoscopic evaluation 06/16 Normal esophagus.A medium amount of food (residue) in the stomach.Normal examined duodenum. Biopsied. With food in stomach may have gastroparesis.
Start Erythromycin
#Junctional bradycardia on EKG
Hold Atenolol
Echo 12/02 within normal limits
TSH 0.29
Monitor on telemetry
#Essential hypertension
Hold atenolol due to HR
#Bipolar disorder
#Anxiety/depression
Urine toxicology 06/16/2023 positive for opiates, barbiturates, marijuana.
Patient stopped trazodone, Zoloft, Klonopin 4 months ago due to lack of insurance
Psychiatry on board
DVT prophylaxis; SCD
CODE STATUS: Full code
Anticipated Discharge: 24 - 48 hours
Subjective/Interval History
-
Date of Service: June 17, 2023
Objective Data
-
Vital Signs:
Vital Signs
Temp Pulse Resp BP Pulse Ox
99 F 44 10 144/88 98
06/17/23 09:45 06/17/23 09:46 06/17/23 09:46 06/17/23 09:46 06/17/23 09:46
I&O
06/16/23 06/17/23 06/18/23
06:59 06:59 06:59
Intake Total 2039
Output Total 400 / 400 600 / 600
Balance 1640 / 1640 -600 / -600
Data Reviewed
-
Labs: Labs Reviewed by me and Discussed with Physician
--- NOTE | 2023-06-17 14:02 | W.PN.UPDATE ---
Update Note
Progress Note Update
Patient seen and examined
Discussed with resident:
Impression:
Presentation with abdominal pain and nausea without vomiting.
Junctional bradycardia to 40s while on atenolol.
Known abdominal aortic aneurysm.
Essential hypertension
Psych history including PTSD, anxiety, depression/bipolar disorder
Former smoker
Spinal stenosis
Plan:
Abdominal pain.
Exam benign.
CBC/CMP within normal limits.
CTA chest abdomen pelvis with no acute abnormalities.
EGD on 06/16 suggestive of gastroparesis.
Initiated on erythromycin trial, prior history of allergy to Reglan, although patient could not recall or specify reasoning for administration in the past.
Hold trazodone while on Reglan. Follow ECG for QTc presentation. Stop Zofran and avoid other possible QTc prolonging medications.
Empiric PPI. Transition to p.o. Protonix
Junctional bradycardia.
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
TSH suppressed at 0.29
Echo 12/02 within normal limits
Hold atenolol.
Monitor on telemetry.
Cardiology evaluation appreciated
Psychiatric history including bipolar disorder, PTSD.
Urine drug screen on 05/12 reported positive for opiates, amphetamines, methamphetamines, benzodiazepines.
Patient reports not taking illicit substances currently.
Also given the lack of health insurance ran out of prescription including benzodiazepines.
? Withdrawal component
Repeat drug screen positive for opiates, barbiturates, marijuana.
[2023-06-17] MEDS: TIGAN 200 MG IM (14:45)
--- NOTE | 2023-06-17 16:20 | W.PN.CD ---
Today's Communication / Plan
-
atenolol stopped for bradycardia
trend tele
add losartan for BP
Impression / Plan
-
Nausea, vomiting, and abdominal pain: being treated for gastroparesis per GI
Bradycardia:
-echo today
-atenolol stopped
-HR 40s to 50s on tele: sinus bradycardia; no advanced heart block
Systolic murmur:
-echo
HTN:
-atenolol stopped for bradycardia
-add losartan 25mg daily
Mildly dilated ascending aorta
-4.2 centimeters on CTA
-atenolol stopped for bradycardia
-losartan added
Hx depression:
-psychiatry is following
Physical Exam
Vital Signs/Labs
Vital Signs
Temp Pulse Resp BP Pulse Ox
97.4 F 48 18 146/85 98
06/17/23 16:11 06/17/23 16:11 06/17/23 16:11 06/17/23 16:11 06/17/23 16:11
06/16/23 06/17/23 06/18/23
06:59 06:59 06:59
Actual Weight 61.717 kg
06/16/23 04:35
06/16/23 04:35
Free T4 1.31 ng/dl (0.78-2.19) 06/15/23 15:34
LAB Results
06/15/23
20:15
Troponin I < 0.012
Physical Exam
Constitutional: No acute distress
EENT: Moist mucous membranes
Cardiovascular: Rhythm & rate is regular and Pedal edema is absent
Respiratory: Respiratory effort normal
Neuro/Psych: AO x 3
Data Reviewed
-
Date of Service: June 17, 2023
EKG: Other (Tele: sinus torrey 40s-50s)
[2023-06-17] MEDS: COZAAR 25 MG PO (16:57)
[2023-06-17] MEDS: KLONOPIN 0.5 MG PO (19:46)
[2023-06-17] MEDS: MELATONIN 5 MG PO (21:22)
[2023-06-18] MEDS: ERYTHROCIN 103.599999999999994 MG IV (01:13)
[2023-06-18] MEDS: DILAUDID 0.5 MG IV ×5 (01:39→15:15)
[2023-06-18 03:41] VITALS: BP 107/66
--- NOTE | 2023-06-18 06:37 | W.PN.GI.CBS2 ---
Today's Communication / Plan
-
See assessment and plan for details.
Assessment / Plan
-
1. Nausea/vomiting/epigastric pain: With likely delayed gastric emptying given retained contents on endoscopy, likely multifactorial, overall much improved, tolerated diet and much improved symptoms. At this point would continue PPI, and again
discussed dietary modifications including small, frequent, low bulky meals. She has improved on erythromycin, repeat EKG with sinus bradycardia though otherwise normal. Is okay to [place] on this, she will follow-up with Dr. Shafer/nurse practitioner
on August 09, hopefully able to change erythromycin to as needed, continue with PPI, dietary changes and supportive care. She was okay to [place] from GI standpoint. Will sign off for now, please call back with any further questions.
Subjective
Subjective
Date of Service: June 18, 2023
Patient is a much better overall, did tolerate some dinner without difficulty, had 2 bowel movements and feels better overall, no abdominal pain, vomit, fever or chills.
Objective
Data Reviewed
Laboratory Data:
Laboratory Results
06/16/23 04:35
06/16/23 04:35
Laboratory Results
Total Bilirubin 0.8 mg/dl (0.2-1.3) 06/15/23 15:34
AST 32 U/L (14-36) 06/15/23 15:34
ALT 25 U/L (0-35) 06/15/23 15:34
Alkaline Phosphatase 102 U/L (38-126) 06/15/23 15:34
Lipase 107 U/L (23-300) 06/15/23 15:34
Vital Signs and I&O:
Vital Signs
Temp Pulse Resp BP Pulse Ox
98.7 F 52 20 107/66 97
06/18/23 03:41 06/18/23 03:41 06/18/23 03:41 06/18/23 03:41 06/18/23 03:41
I&O
06/16/23 06/17/23 06/18/23
06:59 06:59 06:59
Intake Total 2039 / 2039 1020 / 1020
Output Total 400 / 400 1000 / 1000
Balance 1640 / 1640
Physical Exam
Physical Exam
General: NAD
Abdomen: normal bowel sounds, soft, no tenderness, no masses or bruits, no ascites
[2023-06-18 07:40] VITALS: BP 113/64
[2023-06-18] MEDS: CARAFATE SUSPENSION 1 GM PO (08:36)
[2023-06-18] MEDS: COZAAR 25 MG PO (08:37)
[2023-06-18] MEDS: PROTONIX 40 MG PO (08:37)
[2023-06-18] MEDS: TIGAN 200 MG IM (08:46)
--- NOTE | 2023-06-18 09:13 | W.PN.CD ---
Today's Communication / Plan
-
bradycardia noted: no advanced heart block, no indication for PPM
atenolol stopped this admission
now on losartan 25mg daily
Impression / Plan
-
Nausea, vomiting, and abdominal pain: being treated for gastroparesis per GI
Bradycardia:
-echo 06/16: EF 65%, nl RV, no sig valve disease
-atenolol stopped
-HR 40s to 50s on tele: sinus bradycardia; no advanced heart block
HTN:
-atenolol stopped for bradycardia
-added losartan 25mg daily this admission
Mildly dilated ascending aorta
-4.2 centimeters on CTA
-atenolol stopped for bradycardia
-losartan added
Hx depression:
-psychiatry is following
Physical Exam
Vital Signs/Labs
Vital Signs
Temp Pulse Resp BP Pulse Ox
98 F 62 16 113/64 98
06/18/23 07:40 06/18/23 08:37 06/18/23 07:40 06/18/23 08:37 06/18/23 07:40
06/16/23 04:35
06/16/23 04:35
Free T4 1.31 ng/dl (0.78-2.19) 06/15/23 15:34
LAB Results
06/15/23
20:15
Troponin I < 0.012
Physical Exam
Constitutional: No acute distress and Comfortable
EENT: Moist mucous membranes
Cardiovascular: Rhythm & rate is regular, Pedal edema is absent, JVD pressure is normal and Systolic murmur absent
Respiratory: Respiratory effort normal, Lungs clear to auscul. and Wheeze Absent
Neuro/Psych: AO x 3
Data Reviewed
-
Date of Service: June 18, 2023
EKG: Other (Tele: SB/SR 45-60s)
Echo: Report Reviewed by me (per note)
--- NOTE | 2023-06-18 09:20 | W.DCSUMMARY ---
Addendum entered and electronically signed by Stef Sun MD 06/18/23 14:27:
Patient seen and examined
Discussed with resident
Discussed with GI
Impression/plan:
Persistent abdominal pain/epigastric pain
Ongoing workup consistent with gastroparesis.
Possibly related to marijuana and opiates.
Patient with no history of diabetes.
Initiated on erythromycin with some improvement
Diet has been advanced.
GI recommendation noted with frequent small meals
Follow-up with gastroenterology as outpatient for gastric emptying studies.
Bradycardia while on atenolol.
Improved while off beta-blockers
Initiated on losartan for hypertension.
Follow-up ECG with normal QTc while initiated on erythromycin
Trazodone had been discontinued given drug interactions with risk for QTc prolongation
Cleared for discharge.
Original Note:
Documented by User: Sarah Beth Gabriel MD, Resident 06/18/23 13:20
Discharge Summary
Discharge Data
Date of Admission: 06/15/23
Date of Discharge: 06/18/23
-
Pending Results: Yes (Duodenal biopsy, stomach biopsy, awaiting pathology results. )
Hospital Course
DISCHARGE DIAGNOSIS:
1. Nausea/vomiting/abdominal pain
2. Bradycardia
3. Psychiatric history including bipolar disorder, PTSD
4. Hypertension
Consults: Gastroenterology, cardiology, psychiatry
BRIEF HOSPITAL COURSE: This is a 62-year-old female with past medical history significant for hypertension, bipolar disorder, anxiety, depression, migraines, gastritis, spinal stenosis, history of diverticulitis, thoracic aortic aneurysm who
presented to ED with complaints of epigastric pain with vomiting. The patient reports that she developed mild abdominal discomfort several days ago with associated mild nausea. A day before presenting to the ED, she noted significant pain and
vomiting while at work similar to the pain she experienced when she had diverticulitis about 6 days ago. She reports she has had significant stressors in his life recently and had just gotten out of insurance back. She has been off a lot of her
medications including her medications for bipolar disorder and anxiety. She reports she has lost 5 pounds over the past few days due to decreased intake of meal because she vomits everything she eats up. She reports she takes Advil for pain at
home with 600 mg a day which she has been using more frequently, but no prolonged use. On presentation to the ED, evaluation with CTA of the chest, abdomen and pelvis showed no acute findings, mild dilation of the ascending aorta with short axis
diameter 4.2 cm at the level the right main pulmonary artery. No evidence for pulmonary embolism. She was started on a GI cocktail and IV Dilaudid for pain as needed. She was placed on a clear liquid diet, IV fluids, IV PPI and admitted for
further evaluation.
Gastroenterology was consulted, and her PPI was increased to twice daily IV. Carafate was added to medication regimen, and an upper GI endoscopy was scheduled for further evaluation. EGD done 06/16 with likely delayed gastric emptying given retained
contents on endoscopy suggestive of gastroparesis. Duodenum biopsy and stomach biopsy collected and pending at this time. She was initiated on erythromycin trial and her symptoms improved. Her Diet was advanced. She tolerated dinner without
difficulty, had 2 bowel movements and reported much improved symptoms. She will be discharged home today with erythromycin to 50 mg Q8 PO, transitioned to oral Protonix, and educated on dietary modifications including small, frequent, new bulky
meals. She will follow-up with gastroenterology on August 09 outpatient.
EKG performed in the ED on the day of presentation showed bradycardia with periods of junctional rhythm, and second-degree AV block Mobitz type I. Cardiology was consulted for cardiac clearance due to the patient needing an EGD procedure. Heart
rates was around 40 bpm. Patient denied syncope and was stable overall. Home atenolol for hypertension was discontinued, losartan was started during this admission. Evaluation with an echocardiogram showed left ventricular ejection fraction 65%,
with no significant valve disease. Routine labs on admission noted to have a low TSH of 0.29 with a normal free T4 at 1.31. Cardiology gave clearance for EGD procedure and a repeat EKG was performed after procedure. Repeat EKG showed marked sinus
bradycardia, no advanced heart block, with sinus rhythm replacing junctional rhythm. Heart rate still in the 40s, and QTc intervals 407. On the day of discharge, another EKG was performed for final discharge clearance showing normal sinus rhythm
with heart rate in the 60s, QTC 407
On presentation to the ED, patient reports she stopped trazodone, Zoloft, Klonopin for bipolar disorder due to lack of insurance. Psychiatry was consulted and these meds, except Zofran were to be continued on admission. Urine toxicology was done
during this admission, positive for opiates, barbiturates, marijuana. Due to concerns for possible QTc prolongation, her Zofran was discontinued. And trazodone was being held while patient was initiated on erythromycin trial. On the day of
discharge, psychiatrist recommends that we hold off on psych meds while patient follows [facility] as an outpatient.
Hypertension; atenolol will be discontinued on the day of discharge, and she will be started on losartan for blood pressure control.
On the day of discharge, temperature 98, BP 113/64, pulse 62, O2 sat 98 on room air..
Physical examination; patient is awake alert in no acute distress. S1-S2 present regular rate and regular rhythm. Lungs clear on auscultation bilaterally. Abdomen soft, nontender, nondistended, with normal bowel sounds. Extremities show no
peripheral edema.
Discharge Plan
-
Patient Disposition: Home (Routine Discharge)
Discharge Diagnosis/Procedures: Nausea/vomiting/abdominal pain
Bradycardia
Psychiatric history including bipolar disorder, PTSD
Hypertension
Condition: Good
Diet: As tolerated
Referrals:
Nunu Marquez NP [Specified Professional Personl] - 08/10/23 11:30 am (Please call to reschedule if you can not keep this appointment. If your insurance requires a referral please contact your primary care physician prior to your appointment. )
James Camarillo DO [Family Provider] -
Prescriptions:
New
erythromycin 250 mg Tablet,Delayed Release (Dr/Ec)
250 mg PO TID Qty: 90 0RF
pantoprazole 40 mg Tablet,Delayed Release (Dr/Ec)
40 mg PO DAILY Qty: 60 0RF
losartan 25 mg Tablet
25 mg PO DAILY Qty: 30 0RF
Discontinued
atenolol 25 MG tablet
25 mg PO HS
Discharge Orders:
Discharge Patient (As Directed); Ordered 06/18/23
Ordered By: Sarah Beth Gabriel
Discharge Date and Time
Print Language: ROMANIAN

Documented by User: Stef Sun MD 06/18/23 14:25
Discharge Summary
Discharge Data
Date of Admission: 06/15/23
Date of Discharge: 06/18/23
Discharge Plan
-
Patient Disposition: Home (Routine Discharge)
Discharge Diagnosis/Procedures: Nausea/vomiting/abdominal pain
Bradycardia
Psychiatric history including bipolar disorder, PTSD
Hypertension
Condition: Good
Diet: As tolerated
Referrals:
Nunu Marquez NP [Specified Professional Personl] - 08/10/23 11:30 am (Please call to reschedule if you can not keep this appointment. If your insurance requires a referral please contact your primary care physician prior to your appointment. )
James Camarillo DO [Family Provider] -
Prescriptions:
New
erythromycin 250 mg Tablet,Delayed Release (Dr/Ec)
250 mg PO TID Qty: 90 0RF
pantoprazole 40 mg Tablet,Delayed Release (Dr/Ec)
40 mg PO DAILY Qty: 60 0RF
losartan 25 mg Tablet
25 mg PO DAILY Qty: 30 0RF
Discontinued
atenolol 25 MG tablet
25 mg PO HS
Discharge Orders:
Discharge Patient (As Directed); Ordered 06/18/23
Ordered By: Sarah Beth Gabriel
Discharge Date and Time
Print Language: ROMANIAN
[2023-06-18] MEDS: ERYTAB 250 MG PO ×2 (09:41→15:18)
[2023-06-18 11:36] LABS: Glucose - Point of Care 90 mg/dl (70-99)
[2023-06-18] MEDS: TYLENOL 650 MG PO (12:00)
--- NOTE | 2023-06-18 12:29 | W.PN.UPDATE ---
Update Note
Progress Note Update
patient seen chart reviewed. awaiting path results but it does seem patient is doing better at this point .her appetite has returned. she is no longer nauseated. she is hopeful that eventually her doctors will get to the bottom of the gi issue.
she is holding up well psychiatrically. would hold off on psych meds at this point. she will seek out pt psych rx eventually but get her gi sx in order first. recommended [facility] and [facility]
for psych spoke w dr holder she is being dc today.
[2023-06-18] MEDS: FLUZONE QUAD 2023-2024 SYRINGE 0.5 ML IM (13:25)
--- NOTE | 2023-06-18 14:44 | CM ---
CM following for d/c planning
Pt for d/c today
Has ride home
Plan - home no needs
[2023-06-18 15:21] VITALS: BP 122/76
== END 2023-06-18 18:30 | disposition home or self-care (01) ==
LOC: 3 WEST ACU 20:58
PROVIDERS: Clinical Nurse Specialist Family Health; Psychiatry & Neurology Psychiatry; ADMITTING PHYSICIAN Internal Medicine; ATTENDING PHYSICIAN Internal Medicine; CONSULT PHYSICIAN Internal Medicine Cardiovascular Disease; CONSULT PHYSICIAN Internal Medicine Gastroenterology; EMERGENCY PHYSICIAN Emergency Medicine; FAMILY PHYSICIAN Family Medicine
DX: R11.2 Nausea with vomiting, unspecified (principal); R10.9 Unspecified abdominal pain; I71.60 Thoracoabdominal aortic aneurysm, without rupture, unspecified; F31.9 Bipolar disorder, unspecified; F43.10 Post-traumatic stress disorder, unspecified; R00.1 Bradycardia, unspecified; G89.29 Other chronic pain; I10 Essential (primary) hypertension; R16.0 Hepatomegaly, not elsewhere classified; R73.9 Hyperglycemia, unspecified; K59.00 Constipation, unspecified; K29.70 Gastritis, unspecified, without bleeding; R01.1 Cardiac murmur, unspecified; F12.90 Cannabis use, unspecified, uncomplicated; F11.90 Opioid use, unspecified, uncomplicated; F15.90 Other stimulant use, unspecified, uncomplicated; M48.02 Spinal stenosis, cervical region; R07.9 Chest pain, unspecified; Z86.79 Personal history of other diseases of the circulatory system; Z87.891 Personal history of nicotine dependence; Z87.19 Personal history of other diseases of the digestive system; Z23 Encounter for immunization; Z86.16 Personal history of COVID-19; Z88.8 Allergy status to other drugs, medicaments and biological substances; Z65.8 Other specified problems related to psychosocial circumstances; Z62.810 Personal history of physical and sexual abuse in childhood; Z82.49 Family history of ischemic heart disease and other diseases of the circulatory system; Z59.7 Insufficient social insurance and welfare support
CPT/HCPCS: 43239; 88305; 71275; 74174; 80048; 80053; 80306; 80307; 81003; 81015; 82962; 83036; 83690; 84439; 84443; 84484; 85025; 87070; 87147; 88342; 90686; 93005; 93306; 96361; 96374; 96375; 96376; 99285; G0008; G0378; J1364; Q9967

== ENCOUNTER 2024-11-24 13:27 | Emergency (ER) | payer OTHER, SELFPAY ==
[2024-11-24 13:30] VITALS: BP 135/74
[2024-11-24 13:47] LABS: Hematocrit 33.4 % (37.0-47.0); Hemoglobin 11.7 g/dL (12.0-16.0); Mean Corp Hgb Conc. 35.0 g/dL (33.0-37.0); Mean Corpuscular Volume 89.8 fL (81.0-99.0); Nucleated Red Blood Cells % 0 %; Platelet Count 270 10^3/uL (130-400); Red Cell Dist. Width 11.7 % (11.5-14.5)
[2024-11-24 14:13] LABS: Blood Urea Nitrogen 9 mg/dl (7-17); Calcium 9.5 mg/dl (8.4-10.2); Carbon Dioxide 28 mmol/L (22-30); Chloride 107 mmol/L (98-107); Glucose 149 mg/dl (70-99); Lipase 42 U/L (23-300); Sodium 140 mmol/L (135-145); eGFR > 60.00
--- NOTE | 2024-11-24 16:45 | ED.GENMED ---
History of Present Illness
General
Chief Complaint: Abdominal Symptoms
Time Seen by Provider: 11/24/24 15:45
History of Present Illness
History of Present Illness:
64-year-old female presents to the emergency department for evaluation of intractable nausea and vomiting that began at 4 AM today. She is 4 days status post left total hip replacement performed by Dr. Iraheta. States that her left hip pain and
recovery has been going well until the vomiting began. Has been unable to tolerate her normal meds as a result. Denies any abdominal pain or diarrhea. No fevers or chills. She does endorse that she currently has heightened anxiety in the setting
of her recent surgery and has had this type of reaction in the past during severe periods of anxiety
Past History
Past History
ED Past Medical History: HTN, Psychiatric (Bipolar disorder) and Other (Cervical and thoracic disc disease, chronic chest pain, T3 herniation/narcotic dependent, Gastroenteritis, Intractable Nausea/vomiting, ascending aortic aneurysm (3.4cm))
ED Past Surgical History: Gynecological (Ectopic , D&C) and Orthopedic (Epidural injection, Left hip fracture)
Social History
Tobacco: Former smoker
Alcohol: Occasional
Personal: (Divorce, and remarried. Intermittent custody siu and stress from her ex-. )
Living: with family
Employment: Not employed
Family History
Family History: Other (Noncontributory)
Review of Systems
Review of Systems
Allergies reviewed?: Yes
All Other Systems: ROS reviewed and negative except as documented in HPI and ROS
Phy Exam
Physical Exam
Physical Exam:
GEN: Well appearing, NAD, WDWN
HEENT: Oral mucosa moist, no scleral icterus
Cardiac: Regular rate
Lung: No respiratory distress, no tachypnea
Abdomen: Soft, grossly nontender
MSK: Mepilex dressing in place, no overt erythema to the left hip, nontender to palpation
Skin: Good color, no pallor or jaundice, no rashes
Neuro: AO x3, moves all extremities freely
Psych: Calm, cooperative
Course
Orders/Labs/Results
Orders:
Orders
11/24/24 13:39
Basic Metabolic Panel Urgent
Complete Blood Count/With Diff Urgent
Lipase Urgent
11/24/24 15:54
0.9% Sodium Chloride 1000 ml [Nss] 1,000 ml IV BOLUS
HYDROmorphone [Dilaudid] 0.25 mg IV NOW STA
Ondansetron Injectable [Zofran] 4 mg IV NOW STA
11/24/24 17:41
Oxycodone [Roxicodone] 5 mg PO NOW STA
11/24/24 18:17
Midazolam HCl [Versed] 1 mg IV NOW STA
11/24/24 19:15
HYDROmorphone [Dilaudid] 0.5 mg IV NOW STA
Ondansetron Injectable [Zofran] 4 mg IV NOW STA
11/24/24 21:11
Ondansetron Orally Disint [Zofran Odt (Orally Disintegrating)] 4 mg PO NOW STA
Abnormal Lab Results
11/24/24
13:39
RBC 3.72 L 10^6/uL
(4.20-5.40)
Hgb 11.7 L g/dL
(12.0-16.0)
Hct 33.4 L %
(37.0-47.0)
MCH 31.5 H pg
(27.0-31.0)
Abs Immat Gran (auto) 0.1 H 10^3/uL
(0-0.05)
Absolute Neuts (auto) 8.3 H 10^3/uL
(1.4-6.5)
Absolute Lymphs (auto) 1.0 L 10^3/uL
(1.2-3.4)
Neutrophils % 84.6 H %
(42.2-75.2)
Lymphocytes % 9.7 L %
(20.5-51.1)
Creatinine 0.5 L mg/dL
(0.6-1.0)
Glucose 149 H mg/dl
(70-99)
11/24/24 13:39
11/24/24 13:39
Vital Signs
Initial and Last Documented VS:
Initial Vital Signs
Temp Pulse Resp BP Pulse Ox
99.4 F 53 24 135/74 99
11/24/24 13:30 11/24/24 13:30 11/24/24 13:30 11/24/24 13:30 11/24/24 13:30
Last Documented Vital Signs
Temp Pulse Resp BP Pulse Ox
99.4 F 50 24 138/78 99
11/24/24 13:30 11/24/24 18:49 11/24/24 13:30 11/24/24 19:00 11/24/24 19:00
MDM/Problems Addressed
MDM/Problems Addressed:
Patient required multiple antiemetics in addition to IV fluids before she was able to tolerate p.o. Unclear etiology to her symptoms, lack of diarrhea suggest this is not a viral etiology and she has no pain that would warrant imaging. Certainly
this could be an anxiety related trigger as the patient alludes to. She is stable at time of discharge, will provide antiemetics
*Pulse Oximetry
SaO2: 99
Oxygen Mode of Delivery: Room air
Patient hypoxic: no
*Critical Care Note
Total Time (30-74mins, 75-104mins- exclusive of procedures): Not Applicable
ED Attending Note
-
Portions of this chart may have been created with voice recognition software.� Occasional wrong word or��sound alike� substitutions may have occurred due to the inherent limitations of voice recognition software.
Discharge Plan
Departure
Patient Disposition: Home (Routine Discharge)
Date of Disposition: 11/24/24
Time of Disposition: 21:10
Patient with high blood pressure during this ER visit?: No
Discharge Problem:
Nausea & vomiting
Instructions: Nausea and Vomiting, Adult (DC)
Prescriptions:
New
ondansetron 4 mg tablet,disintegrating
4 mg PO TIDPRN PRN (Reason: nausea/vomiting) Qty: 10 0RF
No Action
erythromycin 250 mg Tablet,Delayed Release (Dr/Ec)
250 mg PO TID Qty: 90 0RF
pantoprazole 40 mg Tablet,Delayed Release (Dr/Ec)
40 mg PO DAILY Qty: 60 0RF
losartan 25 mg Tablet
25 mg PO DAILY Qty: 30 0RF
Referrals:
James Camarillo DO [Family Provider, Family Practice]
Interventions
Interventions:
*Risk Screen - Suicide Last Done: 11/24/24 13:30
*General Assessment Last Done: 11/24/24 13:30
*Neglect/Abuse Screening Last Done: 11/24/24 13:30
*ED- Fall Risk Assessment Last Done: 11/24/24 17:01
*ED COVID-19 Vaccine History Last Done: 11/24/24 17:01
*Nursing Disposition Last Done: 11/24/24 22:05
RL-Yjsmjx-Tiwctngqfa Assessment Last Done: 11/24/24 19:38
Discharge Date and Time
Discharge Date/Time: 11/24/24 22:05
Print Language: SYRIAC
[2024-11-24] MEDS: ZOFRAN 4 MG IV ×2 (16:51→19:20)
[2024-11-24] MEDS: DILAUDID 0.25 MG IV (16:52)
[2024-11-24] MEDS: NSS 1000 IV (16:54)
[2024-11-24 16:55] VITALS: BP 149/99
[2024-11-24] MEDS: VERSED 1 MG IV (18:21)
[2024-11-24 19:00] VITALS: BP 138/78
[2024-11-24] MEDS: DILAUDID 0.5 MG IV (19:19)
[2024-11-24] MEDS: ZOFRAN ODT (ORALLY DISINTEGRATING) 4 MG PO (21:21)
== END 2024-11-24 22:05 | disposition home or self-care (01) ==
LOC: EMR 13:27
PROVIDERS: Emergency Medicine; EMERGENCY PHYSICIAN Emergency Medicine; FAMILY PHYSICIAN Family Medicine
DX: R11.2 Nausea with vomiting, unspecified (principal); I10 Essential (primary) hypertension; F31.9 Bipolar disorder, unspecified; F41.9 Anxiety disorder, unspecified; Z87.59 Personal history of other complications of pregnancy, childbirth and the puerperium; Z87.891 Personal history of nicotine dependence; Z96.642 Presence of left artificial hip joint
CPT/HCPCS: 99283; 96374; 96375; 96376; 96361; 80048; 83690; 85025

== ENCOUNTER 2024-11-26 05:28 | Emergency (ER) | payer OTHER, SELFPAY ==
[2024-11-26] VITALS (8 sets, daily range): BP systolic 135–165; BP diastolic 80–129; BMI 23.1
[2024-11-26 05:51] LABS: Hematocrit 33.5 % (37.0-47.0); Hemoglobin 11.8 g/dL (12.0-16.0); Mean Corp Hgb Conc. 35.2 g/dL (33.0-37.0); Mean Corpuscular Volume 88.6 fL (81.0-99.0); Nucleated Red Blood Cells % 0 %; Platelet Count 283 10^3/uL (130-400); Red Cell Dist. Width 11.7 % (11.5-14.5)
[2024-11-26 06:10] LABS: ALT (SGPT) 104 U/L (0-35); AST (SGOT) 44 U/L (14-36); Albumin 4.4 g/dl (3.5-5.0); Alkaline Phosphatase 125 U/L (38-126); Blood Urea Nitrogen 10 mg/dl (7-17); Calcium 9.3 mg/dl (8.4-10.2); Carbon Dioxide 23 mmol/L (22-30); Chloride 105 mmol/L (98-107); Estimated Creatinine Clearance 84 ml/min; Glucose 110 mg/dl (70-99); Potassium 3.2 mmol/L (3.5-5.1); Sodium 136 mmol/L (135-145); Total Protein 7.0 g/dl (6.3-8.2); eGFR > 60.00
[2024-11-26] MEDS: ZOFRAN 4 MG IV (07:46)
[2024-11-26] MEDS: DILAUDID 1 MG IV (07:48)
[2024-11-26] MEDS: NSS 1000 IV (07:49)
--- NOTE | 2024-11-26 07:51 | ED.GENMED ---
History of Present Illness
<Kobi Anne PA-C - Last Filed: 11/26/24 14:23>
General
Chief Complaint: Abdominal Symptoms
Source: patient
Time Seen by Provider: 11/26/24 07:33
History of Present Illness
History of Present Illness:
64-year-old female with past medical history of a dilated thoracic aorta, diverticulitis, anxiety/bipolar disorder presenting to the emergency department for reevaluation after being seen on Wednesday for persistent nausea and vomiting, diminished p.o.
intake, inability to tolerate her medication following a left total hip replacement done [address] Olea. Patient did state that she felt better following her visit to the emergency department on Wednesday but symptoms started again
yesterday. She notes that she has been unable to tolerate her pain medication which she feels is triggering the anxiety state. She notes that she has had similar reactions after 3 other major surgeries and her symptoms were attributed to
anesthesia. Patient stated to me that she does not have any chronic history of anxiety however based off of record review patient has been to this ER multiple times for similar without surgical procedures being completed in the past. Patient
denies any abdominal pain stating that her only pain presently is within her left hip. She denies any fevers, chills, rigors, urinary symptoms, bowel changes, chest pain, shortness of breath, palpitations, cough, diaphoresis, lower extremity edema.
Past History
<Kobi Anne PA-C - Last Filed: 11/26/24 14:23>
Past History
ED Past Medical History: HTN, Psychiatric (Bipolar disorder) and Other (Cervical and thoracic disc disease, chronic chest pain, T3 herniation/narcotic dependent, Gastroenteritis, Intractable Nausea/vomiting, ascending aortic aneurysm (3.4cm))
ED Past Surgical History: Gynecological (Ectopic , D&C) and Orthopedic (Epidural injection, Left hip fracture)
Social History
Tobacco: Former smoker
Alcohol: Occasional
Drug: None
Personal: (Divorce, and remarried. Intermittent custody siu and stress from her ex-. )
Living: with family
Employment: Not employed
Family History
Family History: Other (Noncontributory)
Review of Systems
<Kobi Anne PA-C - Last Filed: 11/26/24 14:23>
Review of Systems
All Other Systems: ROS reviewed and negative except as documented in HPI and ROS
Phy Exam
<Kobi Anne PA-C - Last Filed: 11/26/24 14:23>
Physical Exam
Physical Exam:
GENERAL: Alert , in no apparent distress, tearful and anxious
EYE: clear conjunctiva b/l
HEAD: NCAT
ENT: o/p clr, mmm.
CARDIAC: Regular rate and rhythm .
LUNGS: Clear breath sounds bilaterally, no acute respiratory distress, no wheezes/rales/rhonchi
ABDOMEN: Soft, without focal tenderness, no r/g, no cvat, negative Downs sign, no tenderness at McBurney's point
NEUROLOGICAL: Alert and oriented
SKIN: Warm and dry, skin intact.
MUSCULOSKELETAL: No edema, well perfused. Large postoperative dressing over the lateral left hip is intact without any evidence for bleeding or surrounding erythema
PSYCH: Normal and appropriate interaction.
Scores
<Kobi Anne PA-C - Last Filed: 11/26/24 14:23>
Heart Failure Risk
Heart Failure Risk Score: Not Applicable
Heart Score for Chest Pain Patients
STEMI patient?: Not applicable
Withdrawal Assessment of Alcohol
Withdrawal Assessment Completed?: Not applicable
Course
<Kobi Anne PA-C - Last Filed: 11/26/24 14:23>
Orders/Labs/Results
Orders:
Orders
11/26/24 05:41
Complete Blood Count/With Diff Urgent
Comprehensive Metabolic Panel Urgent
11/26/24 07:39
0.9% Sodium Chloride 1000 ml [Nss] 1,000 ml IV BOLUS
HYDROmorphone [Dilaudid] 1 mg IV NOW STA
Ondansetron Injectable [Zofran] 4 mg IV NOW STA
11/26/24 09:00
Lorazepam [Ativan] 0.5 mg PO NOW STA
11/26/24 09:40
Potassium Chloride 10% Elixir [KCl Elixir] 40 meq PO NOW STA
11/26/24 10:44
Ketorolac [Toradol] 30 mg IV NOW STA
11/26/24 10:45
Prochlorperazine [Compazine] 10 mg IV NOW STA
11/26/24 13:53
Prochlorperazine [Compazine] 10 mg .ROUTE .STK-MED ONE
11/26/24 13:55
Prochlorperazine [Compazine] 10 mg IV NOW STA
Abnormal Lab Results
11/26/24
05:41
RBC 3.78 L 10^6/uL
(4.20-5.40)
Hgb 11.8 L g/dL
(12.0-16.0)
Hct 33.5 L %
(37.0-47.0)
MCH 31.2 H pg
(27.0-31.0)
Absolute Neuts (auto) 6.7 H 10^3/uL
(1.4-6.5)
Neutrophils % 78.6 H %
(42.2-75.2)
Lymphocytes % 13.4 L %
(20.5-51.1)
Potassium 3.2 L mmol/L
(3.5-5.1)
Glucose 110 H mg/dl
(70-99)
AST 44 H U/L
(14-36)
ALT 104 H U/L
(0-35)
11/26/24 05:41
11/26/24 05:41
Vital Signs
Initial and Last Documented VS:
Initial Vital Signs
Temp Pulse Resp BP
99.2 F 53 18 144/80
11/26/24 05:32 11/26/24 05:32 11/26/24 05:32 11/26/24 05:32
Last Documented Vital Signs
Temp Pulse Resp BP Pulse Ox
99.2 F 54 24 152/94 98
11/26/24 05:32 11/26/24 11:15 11/26/24 11:15 11/26/24 11:00 11/26/24 10:30
<Tico Odell, - Last Filed: 11/26/24 12:13>
Orders/Labs/Results
Orders:
Orders
11/26/24 05:41
Complete Blood Count/With Diff Urgent
Comprehensive Metabolic Panel Urgent
11/26/24 07:39
0.9% Sodium Chloride 1000 ml [Nss] 1,000 ml IV BOLUS
HYDROmorphone [Dilaudid] 1 mg IV NOW STA
Ondansetron Injectable [Zofran] 4 mg IV NOW STA
11/26/24 09:00
Lorazepam [Ativan] 0.5 mg PO NOW STA
11/26/24 09:40
Potassium Chloride 10% Elixir [KCl Elixir] 40 meq PO NOW STA
11/26/24 10:44
Ketorolac [Toradol] 30 mg IV NOW STA
11/26/24 10:45
Prochlorperazine [Compazine] 10 mg IV NOW STA
11/26/24 13:53
Prochlorperazine [Compazine] 10 mg .ROUTE .STK-MED ONE
11/26/24 13:55
Prochlorperazine [Compazine] 10 mg IV NOW STA
Abnormal Lab Results
11/26/24
05:41
RBC 3.78 L 10^6/uL
(4.20-5.40)
Hgb 11.8 L g/dL
(12.0-16.0)
Hct 33.5 L %
(37.0-47.0)
MCH 31.2 H pg
(27.0-31.0)
Absolute Neuts (auto) 6.7 H 10^3/uL
(1.4-6.5)
Neutrophils % 78.6 H %
(42.2-75.2)
Lymphocytes % 13.4 L %
(20.5-51.1)
Potassium 3.2 L mmol/L
(3.5-5.1)
Glucose 110 H mg/dl
(70-99)
AST 44 H U/L
(14-36)
ALT 104 H U/L
(0-35)
11/26/24 05:41
11/26/24 05:41
Vital Signs
Initial and Last Documented VS:
Initial Vital Signs
Temp Pulse Resp BP
99.2 F 53 18 144/80
11/26/24 05:32 11/26/24 05:32 11/26/24 05:32 11/26/24 05:32
Last Documented Vital Signs
Temp Pulse Resp BP Pulse Ox
99.2 F 54 24 152/94 98
11/26/24 05:32 11/26/24 11:15 11/26/24 11:15 11/26/24 11:00 11/26/24 10:30
<Kobi Anne PA-C - Last Filed: 11/26/24 14:23>
MDM/Problems Addressed
Differential Diagnosis Includes:
GERD
Gastritis
Peptic ulcer disease
Gastroenteritis although given lack of bowel symptoms making this diagnosis less likely
Medication side effects/anesthesia side effects
Acute exacerbation of patient's chronic anxiety/bipolar disorder
Given the lack of abdominal pain my concern for surgical abdomen is very low as well as patient has a nontender and nondistended abdomen
MDM/Problems Addressed:
64-year-old female presenting to the emergency department for reevaluation seen 2 days ago due to persistent nausea and vomiting, no abdominal pain but patient is stating continued pain to her left hip as she has been unable to tolerate her pain
medication postoperatively. Patient is hemodynamically stable and in no acute distress otherwise but does appear very anxious. Labs were initiated in triage which are reassuring with a normal white blood cell count. Chemistry does reveal a
slightly low potassium so will orally replete this once patient is feeling better. AST and ALT are slightly elevated which could be reactive from all of the patient's vomiting. Did consider biliary colic however given that the patient is not
having any pain I am much less suspicious for this. Considered ultrasound imaging but will defer at this time unless patient does start to experience some abdominal pain. Will treat pain here with Dilaudid. Fluids ordered. Reassessment following.
Chronic conditions affecting care: Psychiatric illness
<Kobi Anne PA-C - Last Filed: 11/26/24 14:23>
*Pulse Oximetry
SaO2: 98
Oxygen Mode of Delivery: Room air
Patient hypoxic: no
*Critical Care Note
Total Time (30-74mins, 75-104mins- exclusive of procedures): Not Applicable
Data Reviewed
Review of Other/Old Records Reveals: Labs and Records
<Kobi Anne PA-C - Last Filed: 11/26/24 14:23>
Comment
Comment:
On last admission here in June 2023 patient had extensive inpatient workup with GI, felt symptoms were related to gastroparesis. Possibly related to marijuana and opiate use, patient denied marijuana use to me. Unclear if she did follow-up with
GI for these outpatient studies that were recommended so we will ask patient about this.
Patient Management
Escalation/DeEscalation of care consider admission/obs:
Patient noted moderate relief following the initial dose of medication, after a while she did start to note recurring pain and nausea. I did discuss with patient directly that on multiple previous visits it was noted that she has suspected
gastroparesis as well as adverse effects from her likely cannabis use and opioid use causing her persistent nausea and vomiting. Patient did not disagree with this assessment. I had a candid discussion with the patient about using nonopiate based
medications to control her pain and I strongly encouraged her to not use this medication at home as well as it was likely providing her with short-term relief but long-term complication. Patient was tolerating p.o. fluids, we did give her an oral
dose of potassium repletion and a second dose of pain medication which we used Toradol as well as a dose of Compazine for the nausea. Following this medication patient noted to me that she still felt uncomfortable so given the fact that this was a
repeat visit requiring multiple rounds of medications we discussed admission with the hospitalist team. After further clarification patient stated she just felt scared to go home and was not as symptomatic anymore. I did discuss with the patient
that she needs to except that she will likely have some degree of pain given she is 4 days postop from a significant orthopedics procedure. We discussed sending the patient home with a prescription for Compazine which would also likely help with
her anxiousness as well as a person for gabapentin to help patient's pain. She ultimately felt comfortable with this plan and stable for discharge home. She is aware of return precautions to the ER.
ED Attending Note
<Kobi Anne PA-C - Last Filed: 11/26/24 14:23>
-
Portions of this chart may have been created with voice recognition software.� Occasional wrong word or��sound alike� substitutions may have occurred due to the inherent limitations of voice recognition software.
<Tico Odell DO - Last Filed: 11/26/24 12:13>
ED Attending Note
Patient seen and examined by attending physician: Yes
I performed the substantive portion of visit, reviewed & personally made and approve the management plan that is documented in note by myself or MICHAEL.: Yes
Discharge Plan
Departure
Patient Disposition: Home (Routine Discharge)
Date of Disposition: 11/26/24
Time of Disposition: 10:46
Patient with high blood pressure during this ER visit?: Yes
Discharge Problem:
Nausea and vomiting, Dehydration, Hypokalemia
Instructions: Nausea and Vomiting, Adult (DC)
Prescriptions:
New
prochlorperazine maleate [Compazine] 10 mg tablet
10 mg PO Q8H PRN (Reason: nausea and vomiting) Qty: 10 0RF
gabapentin 300 mg capsule
300 mg PO BID Qty: 10 0RF
No Action
ondansetron 4 mg tablet,disintegrating
4 mg PO TIDPRN PRN (Reason: nausea/vomiting) Qty: 10 0RF
acetaminophen [Tylenol] 325 mg Tablet
650 mg PO Q6HPRN PRN (Reason: mild pain)
aspirin 81 mg Tablet,Delayed Release (Dr/Ec)
81 mg PO DAILY
celecoxib 100 mg Capsule
100 mg PO BID
oxycodone 5 mg Tablet
5 mg PO Q6HPRN PRN (Reason: severe pain)
Patient Comments:
pdmp patient picker tender on 11.24.24 #20
Referrals:
Frankie Christine MD, Resident [Family Provider, General]
Interventions
Interventions:
*Risk Screen - Suicide Last Done: 11/26/24 05:32
*General Assessment Last Done: 11/26/24 05:32
*Neglect/Abuse Screening Last Done: 11/26/24 05:32
*ED- Fall Risk Assessment Last Done: 11/26/24 05:32
*ED COVID-19 Vaccine History Last Done: 11/26/24 05:32
DA-Mgfsrj-Lobnyleoeo Assessment Last Done: 11/26/24 05:32
ED-Skin Assessment Last Done: 11/26/24 05:32
Discharge Date and Time
Print Language: PERUVIAN
[2024-11-26] MEDS: ATIVAN 0.5 MG PO (09:28)
[2024-11-26] MEDS: KCL ELIXIR 40 MEQ PO (10:06)
[2024-11-26] MEDS: TORADOL 30 MG IV (10:48)
[2024-11-26] MEDS: COMPAZINE 10 MG IV ×2 (10:50→13:55)
== END 2024-11-26 16:44 | disposition home or self-care (01) ==
LOC: EMR 05:28
PROVIDERS: Emergency Medicine; EMERGENCY PHYSICIAN Emergency Medicine; FAMILY PHYSICIAN Specialist Research Data Abstracter/Coder
DX: R11.2 Nausea with vomiting, unspecified (principal); E86.0 Dehydration; E87.6 Hypokalemia; I10 Essential (primary) hypertension; I71.21 Aneurysm of the ascending aorta, without rupture; F41.9 Anxiety disorder, unspecified; F31.9 Bipolar disorder, unspecified; M51.34 Other intervertebral disc degeneration, thoracic region; M51.24 Other intervertebral disc displacement, thoracic region; M50.30 Other cervical disc degeneration, unspecified cervical region; Z79.82 Long term (current) use of aspirin; Z96.642 Presence of left artificial hip joint; Z87.891 Personal history of nicotine dependence
CPT/HCPCS: 99284; 96374; 96375 ×3; 96376; 96361; 80053; 85025

== ENCOUNTER → 2025-01-04 10:03 | Outpatient (REF) | payer OTHER, SELFPAY | LOC: RCS 10:03 | PROVIDERS: ATTENDING PHYSICIAN Internal Medicine Cardiovascular Disease; FAMILY PHYSICIAN Student in an Organized Health Care Education/Training Program | DX: I71.21 Aneurysm of the ascending aorta, without rupture (principal) | CPT/HCPCS: 93306 ==